=== PATIENT | male | born 1955 | race Caucasian/White ===

== ENCOUNTER 2022-07-21 10:26 | Emergency (ER) | payer OTHER, SELFPAY ==
[2022-07-21] VITALS (25 sets, daily range): BP systolic 101–164; BP diastolic 57–92; PULSE 54–126; RESP 9–27; O2SAT 93–100; BMI 27.0
--- NOTE | 2022-07-21 11:01 | DI.RAD.S_ITS ---
PROCEDURE: XR CHEST 1V INDICATIONS: chest pain TECHNIQUE: One view of the chest was acquired. COMPARISON: None. FINDINGS: Surgical changes and devices: None. Lungs and pleura: Lungs are clear. No pleural effusions or pneumothorax. Atherosclerotic vascular calcification noted in the aortic arch. Mediastinum: Mediastinal contours appear normal. Heart size is normal. Bones and chest wall: No suspicious bony lesions. Overlying soft tissues appear unremarkable. IMPRESSION: No acute cardiopulmonary findings Approved by: Carlos Alberto Grimes M.D. on 07/21/2022 at 10:41
[2022-07-21] MEDS: dilTIAZem 5 MG/ML SDV 10 MG IV (11:10)
[2022-07-21 11:13] LABS: Add Manual Diff / Slide Review NO; Basophils Absolute Auto 100 /uL (0-100); Basophils Percent Auto 1.4 % (0-2); Eosinophils Absolute Auto 500 /uL (0-450); Eosinophils Percent Auto 8.8 % (2-4); Hematocrit 45.5 % (41-53); Hemoglobin 15.7 g/dL (13.5-17.5); Lymphocytes Absolute Auto 1500 /uL (1100-4500); Lymphocytes Percent Auto 26.1 % (25-40); Mean Corpuscular HGB Conc 34.5 % (30-36); Mean Corpuscular Hemoglobin 33.5 PG (26-34); Monocytes Absolute Auto 600 /uL (0-900); Monocytes Percent Auto 10.4 % (3-14); Neutrophils Absolute Auto 3000 /uL (1500-7000); Neutrophils Percent Auto 53.3 % (50-75); Platelet Count 169 X10^3/uL (150-400); Red Blood Cell Count 4.69 X10^6/uL (4.5-5.9); Red Cell Distribution Width 13.2 % (11.6-14.8); White Blood Cell Count 5.7 X10^3/uL (4.5-11.0)
--- NOTE | 2022-07-21 11:13 | ED_ITS ---
HPI - Arrhythmia/Palpitations General Chief Complaint: Arrhythmia/Palpitations Stated Complaint: thinks he's going into afib Time Seen by Provider: 07/21/22 10:55 History of Present Illness HPI narrative: Patient is a 67-year-old male history of paroxysmal atrial fibrillation hypertension hyperlipidemia presents today with AFib. He says he previously has been cardioverted both with electricity and pills. He is not on any anticoagulation it is only happened a couple of times in his life. He is confident that it happened within the last hour and a half. He feels like he has some fluttering in his chest. He actually denies any pain. Denies any shortness of breath fever chills nausea vomiting or abdominal pain. He is not dizzy or lightheaded. No falling. Related Data Allergies Allergy/AdvReac Type Severity Reaction Status Date / Time No Known Drug Allergies Allergy Verified 07/21/22 14:14 Review of Systems Review of Systems ROS Unobtainable: All systems reviewed & are unremarkable except as noted in HPI and below Patient History Social History Smoking Status: Former smoker Exam Initial Vital Signs Initial Vital Signs: Vital Signs Pulse Rate 124 H 07/21/22 10:51 Respiratory Rate 19 07/21/22 10:51 Pulse Oximetry 99 07/21/22 10:51 GENERAL: Alert pleasant 67-year-old male HEENT: Head atraumatic,EOMI, pupils reactive, face symmetric, moist mucous membranes CARDIOVASCULAR: Irregularly irregular RESPIRATORY: Breath sounds equal bilaterally, no wheezes rales or rhonchi. ABDOMEN: Soft, nontender. Normoactive bowel sounds all 4 quadrants. No guarding or rebound. EXTREMITIES: Normal range of motion, no clubbing or edema. Neurovascularly intact NEUROLOGICAL: Alert and oriented x4. SKIN: Warm, dry, no laceration, no petechiae, no rashes or lesions. Procedures Cardioversion Indication: afib Stability: Stable Number of attempts (shocks): 1 Joules used: 120 Cardiac rhythm post-cardioversion: NSR Procedural Sedation Consent signed: Yes Time out performed: Yes IV Propofol dose (mg): 80 ED Sedation Level: Moderate (Concious) Patient Tolerated Procedure: Well Complications: hypoventilation Interventions: Airway repositioned and Assist by BVM Course Orders Ordered: ED Orders 07/21/22 10:57 Complete Blood Count AUTO DIFF Stat Comprehensive Metabolic Panel Stat Lipase Stat Magnesium Stat Partial Thromboplastin Time Stat Prothrombin Time INR Stat Troponin & CK Cardiac Panel Stat 07/21/22 11:01 XR chest 1V Stat 07/21/22 11:17 COVID19 -Nasal RAPID/Pre-Proc Stat 07/21/22 14:26 EKG-12 Lead Routine Discontinued Medications Diltiazem HCl (Diltiazem 5 Mg/Ml Sdv) 10 mg IV NOW ONE Stop: 07/21/22 11:04 Last Admin: 07/21/22 11:10 Dose: 10 mg Documented By: RB Sodium Chloride (Normal Saline 0.9%) 1,000 mls @ 1,000 mls/hr IV BOLUS ONE Stop: 07/21/22 15:15 Last Infusion: 07/21/22 15:09 Dose: 0 mls/hr Documented By: Admin: 07/21/22 14:15 Dose: 1,000 mls/hr Documented By: RB Propofol (Propofol 200 Mg/20 Ml Vial) 80 mg 1 mg/kg (80 mg) IV NOW ONE Stop: 07/21/22 14:03 Last Admin: 07/21/22 14:17 Dose: 80 mg Documented By: RB Vital Signs Vital signs: Vital Signs - 8 hr 07/21/22 11:10 07/21/22 11:08 07/21/22 11:08 Pulse Rate 126 H 124 H Respiratory Rate 18 Blood Pressure 150/88 H 150/88 H Pulse Oximetry 97 07/21/22 11:15 07/21/22 11:15 07/21/22 11:30 Pulse Rate 103 H Respiratory Rate 10 L Blood Pressure 118/69 128/78 Pulse Oximetry 98 07/21/22 11:30 07/21/22 11:45 07/21/22 11:45 Pulse Rate 84 93 H Respiratory Rate 12 10 L Blood Pressure 123/75 Pulse Oximetry 96 97 07/21/22 12:00 07/21/22 12:30 07/21/22 13:00 Pulse Rate 98 H 94 H 98 H Respiratory Rate 11 L Blood Pressure Pulse Oximetry 96 98 07/21/22 13:34 07/21/22 13:35 07/21/22 13:35 Pulse Rate 115 H 125 H Respiratory Rate 13 Blood Pressure 134/90 Pulse Oximetry 94 98 07/21/22 13:45 07/21/22 13:45 07/21/22 14:00 Pulse Rate 101 H Respiratory Rate Blood Pressure 117/80 122/69 Pulse Oximetry 99 07/21/22 14:00 07/21/22 14:15 07/21/22 14:15 Pulse Rate 96 H 105 H Respiratory Rate 13 Blood Pressure 135/86 Pulse Oximetry 97 100 07/21/22 14:19 07/21/22 14:19 07/21/22 14:20 Pulse Rate 66 Respiratory Rate 25 H Blood Pressure 134/62 114/57 L Pulse Oximetry 93 07/21/22 14:20 07/21/22 14:25 07/21/22 14:25 Pulse Rate 62 63 Respiratory Rate 9 L 15 Blood Pressure 110/72 Pulse Oximetry 99 95 07/21/22 14:30 07/21/22 14:30 07/21/22 14:35 Pulse Rate 62 Respiratory Rate 21 Blood Pressure 114/67 101/69 Pulse Oximetry 97 07/21/22 14:35 07/21/22 14:41 07/21/22 14:41 Pulse Rate 60 58 L Respiratory Rate 27 H 17 Blood Pressure 116/74 Pulse Oximetry 96 95 07/21/22 14:45 07/21/22 14:45 07/21/22 14:51 Pulse Rate 56 L Respiratory Rate 13 Blood Pressure 117/73 109/74 Pulse Oximetry 95 07/21/22 14:51 07/21/22 14:55 07/21/22 14:55 Pulse Rate 55 L 54 L Respiratory Rate 13 10 L Blood Pressure 113/75 Pulse Oximetry 97 96 MDM - Arrhythmia/Palpitations Lab Data Result diagrams: 07/21/22 10:57 07/21/22 10:57 Labs: Lab Results 07/21/22 07/21/22 07/21/22 Range/Units 10:57 10:57 10:57 WBC 5.7 (4.5-11.0) X10^3/uL RBC 4.69 (4.5-5.9) X10^6/uL Hgb 15.7 (13.5-17.5) g/dL Hct 45.5 (41-53) % MCV 97.0 (80-100) fL MCH 33.5 (26-34) PG MCHC 34.5 (30-36) % RDW 13.2 (11.6-14.8) % Plt Count 169 (150-400) X10^3/uL Neut % (Auto) 53.3 (50-75) % Lymph % (Auto) 26.1 (25-40) % [place] % (Auto) 10.4 (3-14) % Eos % (Auto) 8.8 H (2-4) % Baso % (Auto) 1.4 (0-2) % Neut # (Auto) 3000 (3724-4854) /uL Lymph # (Auto) 1500 (7762-3444) /uL [place] # (Auto) 600 (0-900) /uL Eos # (Auto) 500 H (0-450) /uL Baso # (Auto) 100 (0-100) /uL PT 11.3 (10.1-12.7) SECONDS INR 1.0 (0.9-1.3) APTT 30 (26-36) SECONDS Sodium 138 (137-145) mmol/L Potassium 3.5 (3.4-5.1) mmol/L Chloride 102 (98-107) mmol/L Carbon Dioxide 28 (22-32) mmol/L BUN 17 (9-20) mg/dL Creatinine 0.96 (0.66-1.25) mg/dL Estimated GFR > 60 (>60) mL/min BUN/Creatinine Ratio 17.7 (6-22) Glucose 124 H (80-110) mg/dL Calcium 8.9 (8.4-10.2) mg/dL Magnesium 1.9 (1.6-2.3) mg/dL Total Bilirubin 0.9 (0.2-1.3) mg/dL AST 53 (17-59) IU/L ALT 40 (<50) IU/L Alkaline Phosphatase 78 (38-126) U/L Total Creatine Kinase 831 H (55-170) U/L CK-MB (CK-2) 4.08 H (<2.37) ng/mL CK-MB (CK-2) Rel Index 0.5 L (1.5-5.0) % Troponin I < 0.012 (0.01-0.034) ng/mL Total Protein 7.4 (6.3-8.2) g/dL Albumin 4.3 (3.5-5.0) g/dL Globulin 3.1 (1.7-4.1) g/dL Albumin/Globulin Ratio 1.4 (1.0-2.8) Lipase 218 (23-300) U/L SARS-CoV-2 (PCR) (Negative) 07/21/22 Range/Units 11:17 WBC (4.5-11.0) X10^3/uL RBC (4.5-5.9) X10^6/uL Hgb (13.5-17.5) g/dL Hct (41-53) % MCV (80-100) fL MCH (26-34) PG MCHC (30-36) % RDW (11.6-14.8) % Plt Count (150-400) X10^3/uL Neut % (Auto) (50-75) % Lymph % (Auto) (25-40) % [place] % (Auto) (3-14) % Eos % (Auto) (2-4) % Baso % (Auto) (0-2) % Neut # (Auto) (7349-5282) /uL Lymph # (Auto) (0454-6790) /uL [place] # (Auto) (0-900) /uL Eos # (Auto) (0-450) /uL Baso # (Auto) (0-100) /uL PT (10.1-12.7) SECONDS INR (0.9-1.3) APTT (26-36) SECONDS Sodium (137-145) mmol/L Potassium (3.4-5.1) mmol/L Chloride (98-107) mmol/L Carbon Dioxide (22-32) mmol/L BUN (9-20) mg/dL Creatinine (0.66-1.25) mg/dL Estimated GFR (>60) mL/min BUN/Creatinine Ratio (6-22) Glucose (80-110) mg/dL Calcium (8.4-10.2) mg/dL Magnesium (1.6-2.3) mg/dL Total Bilirubin (0.2-1.3) mg/dL AST (17-59) IU/L ALT (<50) IU/L Alkaline Phosphatase (38-126) U/L Total Creatine Kinase (55-170) U/L CK-MB (CK-2) (<2.37) ng/mL CK-MB (CK-2) Rel Index (1.5-5.0) % Troponin I (0.01-0.034) ng/mL Total Protein (6.3-8.2) g/dL Albumin (3.5-5.0) g/dL Globulin (1.7-4.1) g/dL Albumin/Globulin Ratio (1.0-2.8) Lipase (23-300) U/L SARS-CoV-2 (PCR) Negative (Negative) Urine Dip Bedside Urine Glucose Negative Bedside Urine Bilirubin - Negative Bedside Urine Ketone - Negative Urine Specific [place] 1.005 Bedside Urine Occult Blood - Negative Bedside Urine pH 6.0 Bedside Urine Protein - Negative Bedside Urine Urobilinogen - Negative Bedside Urine Nitrite - Negative Bedside Urine Leukocytes - Negative Esterase Imaging Data Chest x-ray: Radiologist's Impresson: XRay Report Signed Patient: Bhupinder Quinonez MR#: [id number] : 1955 Acct:[id number] Age/Sex: 67 / M Date of Service: 07/21/22 Loc: ED Accession Number: [id number] ?? Procedure: XR chest 1V Ordering Provider: Ale Barrios D.O. PROCEDURE:? XR CHEST 1V ? INDICATIONS:? chest pain ? TECHNIQUE:? One view of the chest was acquired.? ? COMPARISON:? None. ? FINDINGS:? ? Surgical changes and devices:? None.? ? Lungs and pleura:? Lungs are clear.? No pleural effusions or pneumothorax.? Atherosclerotic vascular calcification noted in the aortic arch. ? Mediastinum:? Mediastinal contours appear normal.? Heart size is normal.? ? Bones and chest wall:? No suspicious bony lesions.? Overlying soft tissues appear unremarkable.? ? IMPRESSION:? No acute cardiopulmonary findings ? ? ? Approved by: Carlos Alberto Grimes M.D. on 07/21/2022 at 10:41? ECG Data Interpretation: Atrial fibrillation rate 112 right bundle-branch block noted no priors to compare no ST changes EKG 2. Sinus rhythm rate 62 SD interval 138 QRS 130 QTC 468 persistent right bundle-branch block T-wave inversion noted in V3 only MDM Narrative Medical decision making narrative: Patient is 67-year-old male has a history paroxysmal atrial fibrillation not on anticoagulation presents today with AFib for the last hour and a half. He is not dizzy or lightheaded but does have some fluttering in his chest. Blood work is overall reassuring. He is given 1 dose of diltiazem which does slow and stabilize his rate however still symptomatic. No contraindication for cardioversion. Patient is given propofol and easily cardioverted. He did require some airway repositioning but quickly recovered. No complications. At this time based on chads Vasc score he does need aspirin daily. Should follow- up with cardiology he is followed in another town. TELLY?DS?-VASc Score for Atrial Fibrillation Stroke Risk from [employer] on 07/21/2022 All calculations should be rechecked by clinician prior to use RESULT SUMMARY: 2 points Stroke risk was 2.2% per year in >90,000 patients (the [place] Atrial Fibrillation Cohort Study) and 2.9% risk of stroke/TIA/systemic embolism. One recommendation suggests a 0 score for men or 1 score for women (no clinical risk factors) is ?low? risk and may not require anticoagulation; a 1 score for men or 2 score for women is ?low-moderate? risk and should consider antiplatelet or anticoagulation; and a score >= for men or >= for women is ?moderate-high? risk and should otherwise be an anticoagulation candidate. INPUTS: Age ?> 1 = 65-74 Sex ?> 0 = Male CHF history ?> 0 = No Hypertension history ?> 1 = Yes Stroke/TIA/thromboembolism history ?> 0 = No Vascular disease history (prior DE, peripheral artery disease, or aortic plaque) ?> 0 = No Diabetes history ?> 0 = No Discharge Plan Departure Patient Disposition: Home Clinical Impression: Atrial fibrillation Instructions: DI for Atrial Fibrillation Activity Restrictions/Additional Instructions: *You have been diagnosed with atrial fibrillation *What to do: At this time your back in regular rhythm. Please follow-up with your pc network technician. Your medication may need to be adjusted. *Continue to take medications as directed Please take aspirin 81 mg daily to help prevent stroke *Follow up with your primary care provider in 2-3 days or call [phone] *Return to ER if you should have increasing chest pain palpitations dizziness lightheadedness or any new, worsening or concerning symptoms Referrals: Lit Toscano MD [Primary Care Provider] -
[2022-07-21 11:22] LABS: Prothrombin Time 11.3 SECONDS (10.1-12.7)
[2022-07-21 11:24] LABS: PTT Partial Thromboplastin Tim 30 SECONDS (26-36)
[2022-07-21 11:27] LABS: Alanine Aminotransferase 40 IU/L (<50); Albumin 4.3 g/dL (3.5-5.0); Albumin Globulin Ratio 1.4 (1.0-2.8); Alkaline Phosphatase 78 U/L (38-126); Aspartate Aminotransferase 53 IU/L (17-59); BUN Creatinine Ratio 17.7 (6-22); Bilirubin Total 0.9 mg/dL (0.2-1.3); Blood Urea Nitrogen 17 mg/dL (9-20); Calcium 8.9 mg/dL (8.4-10.2); Carbon Dioxide 28 mmol/L (22-32); Chloride 102 mmol/L (98-107); Creatine Kinase 831 U/L (55-170); Estimated Glomerular Filt Rate > 60 mL/min (>60); Globulin 3.1 g/dL (1.7-4.1); Glucose 124 mg/dL (80-110); Lipase 218 U/L (23-300); Magnesium 1.9 mg/dL (1.6-2.3); Potassium 3.5 mmol/L (3.4-5.1); Sodium 138 mmol/L (137-145); Total Protein 7.4 g/dL (6.3-8.2)
[2022-07-21 11:38] LABS: Troponin I < 0.012 ng/mL (0.01-0.034)
[2022-07-21 11:42] LABS: CKMB % Relative Index 0.5 % (1.5-5.0); Creatine Kinase MB 4.08 ng/mL (<2.37); HEMOLYSIS 17 (0-50)
[2022-07-21 11:52] LABS: COVID19 -Nasal RAPID Negative (Negative)
[2022-07-21] MEDS: SODIUM CHLORIDE 0.9% 1,000 ML 1000 ML IV (14:15)
[2022-07-21] MEDS: propofoL 200 MG/20 ML VIAL 80 MG IV (14:17)
== END 2022-07-21 15:09 | disposition home or self-care (01) ==
PROVIDERS: Emergency Provider Emergency Medicine; PCP Family Medicine
DX: I48.0 Paroxysmal atrial fibrillation (principal); R07.9 Chest pain, unspecified
CPT/HCPCS: 36415; 71045; 80053; 81003; 82550; 82553; 83690; 83735; 84484; 85025; 85610; 85730; 87635; 92960; 93005; 96361; 96374; 99152; 99285; C9803; J2704